=== PATIENT | male | born 1970 | race Caucasian/White ===

== ENCOUNTER 2017-03-18 16:15 | Emergency (ER) | payer OTHER, MEDICAID ==
[~2017-03-18] VITALS: Ht 167.6 cm; Wt 79.4 kg
[2017-03-18 17:14] LABS: HEMOGLOBIN 14.5 gm/dL (14.0-18.0)
[2017-03-18 17:18] LABS: HEMATOCRIT 42.9 % (42.0-52.0); MCH 29.6 pg (26.0-34.0); MCHC 33.8 g/dL (28.0-37.0); MCV 87.3 fL (80.0-100.0); MPV 7.6 fl. (7.2-11.1); NUCLEATED RBCS 0 /100WBC; PLATELET COUNT* 274 thou/uL (150-400); RBC 4.92 mil/uL (4.50-6.00); RDW-CV 13.6 % (10.5-14.5); WBC 11.6 thou/uL (4.0-11.0)
[2017-03-18 17:31] LABS: ANION GAP 10 mmol/L (7-16); BUN 17 mg/dL (7-18); CALCIUM 9.6 mg/dL (8.5-10.1); CHLORIDE 102 mmol/L (98-107); CO2 27 mmol/L (21-32); CREATININE 1.2 mg/dL (0.6-1.3); GLUCOSE 132 mg/dL (70-99); POTASSIUM 3.8 mmol/L (3.5-5.1); SODIUM 139 mmol/L (136-145)
[2017-03-18 17:41] LABS: ALKALINE PHOSPHATASE 87 U/L (46-116); SGOT 30 U/L (15-37); SGPT 50 U/L (30-65); TOTAL BILIRUBIN 0.5 mg/dL (<0.1-1.0); TOTAL PROTEIN 7.8 g/dL (6.4-8.2); TROPONIN-I LEVEL <0.06 ng/mL (<0.06)
[2017-03-18 18:11] LABS: ABSOLUTE LYMPHOCYTES 1.2 thou/uL (0.8-5.3); ABSOLUTE MONOCYTES 0.3 thou/uL (0.0-1.2); ABSOLUTE NEUTROPHILS 10.1 thou/uL (1.6-8.1); ATYPICAL LYMPHS 3 %; PLATELET ESTIMATE ADEQUATE
[2017-03-18 18:40] VITALS: BP 132/74
--- NOTE | 2017-03-19 14:37 | EKG ---
[place] [address] ELECTROCARDIOGRAM REPORT Name: MILES PALACIOS [id number] Admission: 03/18/17 Attend Phys: Discharge: 03/18/17 Date of : 66 Report #: [id number] THIS REPORT FOR: //name// [facility] ED Test Date: 2017-03-18 Test Time: 16:29:37 Pat Name: MILES PALACIOS Department: Room: Gender: M Drip Pumper: [place] : 1970 Requested By: Laney Baez Order Number: [id number] MD: Jose David Perez Measurements Intervals [place] Rate: 84 P: 59 IN: 152 QRS: 13 QRSD: 114 T: 46 QT: 358 QTc: 424 Interpretive Statements Sinus rhythm Incomplete right bundle branch block ST elevation suggests acute pericarditis No previous ECG available for comparison Electronically Signed On 03-19-2017 14:36:56 GENERAL INTERNAL MEDICINE PHYSICIAN by Jose David Perez [email or web address] <ELECTRONICALLY SIGNED> By: Jose David Perez MD, [facility] 03/19/17 1436 1629 1629 Jose David Perez MD, FACC /EPI
== END 2017-03-18 18:40 | disposition home or self-care (01) ==
LOC: M.ERS 16:15
PROVIDERS: Personal Emergency Response Attendant
DX: R42 Dizziness and giddiness (principal); G44.209 Tension-type headache, unspecified, not intractable; F17.210 Nicotine dependence, cigarettes, uncomplicated; Z88.0 Allergy status to penicillin